=== PATIENT | female | born 1945 | race Caucasian/White ===

== ENCOUNTER 2020-06-18 10:47 | Outpatient (CLI) | payer MEDICARE, OTHER, SELFPAY ==
--- NOTE | 2020-06-18 10:51 | MM_ITS ---
WS: [id number] BILATERAL SCREENING DIGITAL MAMMOGRAM WITH CAD HISTORY: SCREENING COMPARISON: 05/29/2015 and 01/21/2013 Bilateral CC and MLO views submitted. Computer aided detection analyzed. Breast composition: There are scattered areas of fibroglandular density. No suspicious masses, microc alcifications or architectural distortion. Benign calcifications in each breast. Nodule in the medial inferior LEFT breast has decreased in size since the prior study. MM/[place] [id number] IMPRESSION: BI-RADS: 2-Benign FOLLOW UP: 1 Year Follow-up
== END 2020-06-18 10:48 | disposition home or self-care (01) ==
LOC: RADSHAW 10:49
PROVIDERS: Family Provider Family Medicine; PCP Family Medicine; Visit Provider Family Medicine
DX: Z12.31 Encounter for screening mammogram for malignant neoplasm of breast (principal)
CPT/HCPCS: 77067

== ENCOUNTER 2021-08-14 07:29 | Outpatient (CLI) | payer MEDICARE, OTHER, SELFPAY ==
[2021-08-14 08:03] VITALS: BMI 25.7
--- NOTE | 2021-08-14 08:03 | ECG_ITS ---
Test Date: 2021-08-14 Pat Name: Viki Greene Department: Room: Gender: Female Desktop Technician: Mariana Morgan : 1945 Requested By: Marcos Sun Order Number: [id number] Siddhartha MD: Ashly Barber M.D. Interpretive Statements NAME OF STUDY: LEXISCAN SESTAMIBI STRESS TEST INDICATION: Shortness of Breath, PROCEDURE: At the baseline, the EKG revealed sinus rhythm with a normal ST Ts. The baseline blood pressure was 112/70 mm Hg with a heart rate of 68 beats/min. Lexiscan was infused over a period of 20 seconds. A total of 0.4 milligrams of Lexiscan was infused. The stress phase was continued for a total of 5 minutes. Heart rate at the end of the stress phase was 69 with a blood pressure 111/68. The EKG at the peak infusion revealed no significant changes. Sestamibi was injected 20 seconds after the Lexiscan infusion. Blood pressure at the end of the recovery phase was 116/65 with a heart rate of 88 per minute. CONCLUSION: 1. No significant EKG changes with the LexiScan infusion 2. No LexiScan induced chest pain or cardiac arrhythmia 3. Normal blood pressure and heart rate response 4. Sestamibi/sestamibi perfusion scan pending; see separate report. Electronically Signed On 08-16-2021 14:44:21 CDT by Ashly Barber M.D. [email or web address]
--- NOTE | 2021-08-14 08:04 | NMCV_ITS ---
NM riley perf SPECT r/s* [id number] Viki Greene Age: 75 Gender: F : 1945 Exam Date: 08/14/2021 08:04 Ordering Phys: Marcos Sun Technologist: JIMBO Emmanuel Exam Location: [facility] Indications: ATHEROSCLEROTIC HEART DISEASE OF [place] CORONARY ARTERY STRESS TEST Please see separate stress test report in [facility] for full findings IMAGE PROTOCOL Rest/Stress 1 Lexiscan Day Radiopharmaceutical Dose (mCi) Administration Site Administered by Rest: Tc-99m 10.9 IV JIMBO Schneider Sestamibi Stress:Tc-99m 32.4 IV JIMBO Schneider Sestamibi Rest: 14-Aug-2021 60 Discovery 630 Stress: 14-Aug-2021 30 Discovery 630 0.4mg Lexiscan. Supine position only as patient was unable to lay prone. SPECT RESULTS Technical Quality: Excellent Raw Data Analysis: Normal Image Corrections: No attenuation or motion correction applied Summed Stress Score: 0 Summed Rest Score: 1 Summed Difference Score: 0 PERFUSION FINDINGS Fairly uniform myocardial tracer uptake. No significant perfusion abnormalities FUNCTIONAL RESULTS (calculated via Gated SPECT) Stress Image LV EF (%): 75 Stress EDV (mL):72 TID: 1.2 Stress ESV (mL):18 FUNCTIONAL FINDINGS: Segmental wall motion analysis revealing no gross wall motion abnormalities IMPRESSIONS 1. Unremarkable myocardial perfusion imaging. 2. Normal LV ejection fraction 75%. 3. LV wall motion analysis revealing no gross wall motion abnormalities. 4. Normal LV volume Low probability for coronary ischemia, based on the above findings Dr Ashly Barber MD [facility] (Electronically Signed) Final Date: 14 August 2021 13:03 S
[2021-08-14] MEDS: regadenoson 0.4 Mg/5 ml Syringe IVP (09:10)
[2021-08-14 09:26] VITALS: BP 116/66; PULSE 68
== END 2021-08-14 07:30 | disposition home or self-care (01) ==
LOC: CDL 07:31
PROVIDERS: PCP Family Medicine; Visit Provider Family Medicine
DX: R07.9 Chest pain, unspecified (principal); I25.10 Atherosclerotic heart disease of native coronary artery without angina pectoris
CPT/HCPCS: 78452; 93017; A9500; J2785

== ENCOUNTER 2022-09-26 19:36 | Emergency (ER) | payer MEDICARE, OTHER, SELFPAY ==
[2022-09-26 19:37] VITALS: BP 124/82; PULSE 69; RESP 18; TEMP 36.8; O2SAT 90; BMI 27.4
--- NOTE | 2022-09-26 20:00 | CTR_ITS ---
PROCEDURE INFORMATION: Exam: CT Abdomen And Pelvis With Contrast Exam date and time: 09/26/2022 8:58 PM Age: 77 years old Clinical indication: Nausea and vomiting; Abdominal pain; Generalized; Prior surgery; Surgery date: 6+ months; Surgery type: Appy. Hysterectomy; Patient HX: C/O diffuse abd pain with n/v. History of sbo. ; Additional info: Abd pain vomiting TECHNIQUE: Imaging protocol: Computed tomography of the abdomen and pelvis with contrast. Radiation optimization: All CT scans at this facility use at least one of these dose optimization techniques: automated exposure control; mA and/or kV adjustment per patient size (includes targeted exams where dose is matched to clinical indication); or iterative reconstruction. Contrast material: OMNI 350; Contrast volume: 100 ml; Contrast route: INTRAVENOUS (IV); REPORTING DATA: Count of CT and Cardiac NM exams in prior 12 months: This patient has received 0 known CTs and 0 known cardiac nuclear medicine studies in the 12 months prior to the current study. COMPARISON: CT abdomen pelvis wo/w [id number] 05/07/2017 10:35 AM RADIATION DOSE METRICS: Total DLP (mGy-cm): 576.85 FINDINGS: Liver: Normal. No mass. Gallbladder and bile ducts: Normal. No calcified stones. No ductal dilation. Pancreas: Normal. No ductal dilation. Spleen: Normal. No splenomegaly. Adrenal glands: Normal. No mass. Kidneys and ureters: Small simple bilateral renal cortical cysts. Negative for perinephric inflammation. Negative for hydroureteronephrosis. Negative for nephrolithiasis. Stomach and bowel: Diverticulosis coli. Colon is decompressed. Mild to moderate colonic fecal volume. Proximal to mid small bowel loops are relatively decompressed with gradual caliber increase of mid to distal small bowel measuring up to 3 cm greatest transverse diameter. Terminal small bowel loops are decompressed. Negative for pneumatosis intestinalis. Appendix: Appendectomy. Intraperitoneal space: Small volume scattered mesenteric free fluid without loculation. Negative for pneumoperitoneum. Vasculature: Unremarkable. No abdominal aortic aneurysm. Lymph nodes: Unremarkable. No enlarged lymph nodes. Urinary bladder: Unremarkable as visualized. Reproductive: Hysterectomy. Bones/joints: The lumbar spine demonstrates marked discogenic and apophyseal joint degenerative changes at multiple levels. Soft tissues: Unremarkable. CT/CT abdomen pelvis w con* [id number] IMPRESSION: Mildly dilated mid distal small bowel loops which may represent ileus or early obstruction features. COMMENTS: Consistent with the [employer]'s Incidental Findings Committee white paper (J Am Herve Radiol 2018): Any incidental renal lesion less than 1 cm or classified as too small to characterize, or any incidental cystic renal lesion characterized as simple-appearing, is likely benign. No follow-up imaging is recommended for these lesions per consensus recommendations based on imaging criteria.
[2022-09-26 20:10] VITALS: BP 194/89; PULSE 66; RESP 16; O2SAT 92
[2022-09-26] MEDS: ondansetron 2 mg/ML SDV 2 mL 4 MG IVP (20:36)
[2022-09-26 20:37] LABS: Basophils % 0.1 %; Eosinophils % 0.1 %; Hematocrit 45.5 % (37.0-47.0); Lymphocytes # 0.7 10^3/uL (0.8-4.8); Lymphocytes % 4.7 %; Mean Corpuscular Hemoglobin 31.1 pg (28.0-34.0); Mean Corpuscular Volume 94.2 fl (81-99); Mean Platelet Volume 10.6 fL (7.4-10.4); Monocytes # 0.5 10^3/uL (0.2-0.9); Monocytes % 3.5 %; Neutrophils # 12.79 10^3/uL (1.8-7.7); Neutrophils % 91.3 %; Nucleated Red Blood Cells % 0 %; Platelet Count 179 10^3/cmm (130-400); Red Blood Count 4.83 10^6/uL (4.1-5.3); Red Cell Distribution Width 13.2 % (12.1-15.1)
[2022-09-26] MEDS: lidocaine 2% viscous 15 ML, aluminum-mag hydrox-simethicon 30 ML, sucralfate oral liq 1 GM PO (20:38)
[2022-09-26 20:42] VITALS: BP 134/62; PULSE 69; RESP 16; O2SAT 88
[2022-09-26 20:49] LABS: Alanine Aminotransferase 19 U/L (0-33); Albumin Level 4.2 g/dL (3.5-5.2); Alkaline Phosphatase 68 U/L (35-105); Anion Gap 15.4 (5-19); Aspartate Amino Transferase 29 U/L (0-32); Blood Urea Nitrogen 20 mg/dL (8-23); Calcium 9.4 mg/dL (8.5-10.5); Carbon Dioxide 28 mmol/L (22-29); Chloride 101 mmol/L (98-107); Creatinine Clr Calc Pharmacy 52.4032; Globulin 2.6 g/dL (1.3-4.6); Glucose 116 mg/dL (65-115); Lipase 18 U/L (13-60); Osmolality Calculated 294 mOsm/kg (285-295); Potassium 4.4 mmol/L (3.5-5.1); Sodium 140 mmol/L (136-145); Total Bilirubin 0.6 mg/dL (0.15-1.2); Total Protein 6.8 g/dL (6.6-8.7)
[2022-09-26 20:51] LABS: Add Urine Culture? No; Add Urine Microscopic? YES; Amorphous Sediment Urine 1+ /hpf; Bacteria Urine TRACE /hpf; Bilirubin Urine Neg (Negative); Blood Urine Neg (Negative); Glucose Urine UA Norm (Normal); Ketones Urine 1+ (Negative); Leukocyte Esterase Urine Trace (Negative); Nitrate Urine Negative (Negative); Protein Urine Neg (Negative); RBC Urine 0-4 /hpf (0-2); Specific Gravity, Urine 1.005 (1.005-1.030); Squamous Epithelial Cell Urine 0-4 /hpf (0-5); Sulfosalicylic Acid Urine Negative (Negative); Urine Appearance Clear (CLEAR); Urine Color Yellow (Yellow); Urobilinogen Urine Norm (Negative); WBC Urine 0-4 /hpf (0-5); pH Urine 8 (5-7)
[2022-09-26] MEDS: iohexol 350 mg/mL 500 mL Btl (per mL) IV (21:01)
--- NOTE | 2022-09-26 21:05 | ED_ITS ---
HPI - Abdominal Pain General: Chief Complaint: Abdominal Pain Stated Complaint: ABD PAIN Time Seen by Provider: 09/26/22 19:44 Source: patient History of Present Illness: 77-year-old female with 2 belly surgeries in the remote past. These are a hysterectomy, and a adhesiolysis for small bowel obstruction. She presents with abdominal pain, in the epigastric region radiating into her back since around 3 AM. She has vomited multiple times. She has not had a fever. No diarrhea. No blood in the vomitus or stool. Pain is improved after administration of fentanyl and promethazine in route by EMS. MD elicited complaint: abdominal pain Pertinent past history: other Onset (ago): hour(s) Pain Consistency: constant Location: Epigastric Quality: stabbing Radiation: back Migration to: no migration Exacerbating factors: movement Relieving factors: nothing Associated Symptoms: Reports chills, nausea and vomiting; Denies constipation, diarrhea, dysuria, fever(s), hematochezia, hematuria and melena Review of Systems Const: Reports: chills; Denies: fever(s) ENMT: Denies: throat pain Card: Denies: chest pain or palpitations Resp: Denies: dyspnea, productive cough or non-productive cough GI: Reports: nausea and vomiting; Denies: diarrhea, constipation, hematochezia or melena : Denies: dysuria or hematuria Physical Exam Const: COMMON NORMALS: no acute distress GENERAL APPEARANCE: cooperative; not ill appearing and not frail appearing HENMT: COMMON NORMALS: normocephalic, atraumatic and Normal external nose present HEAD & SCALP: normocephalic and atraumatic FACE & SINUS: normal facial exam and face symmetric NOSE: Normal external nose present Eye: COMMON NORMALS: Equal, round and reactive pupils present and EOMs intact bilaterally PUPIL: Yes Equal, round and reactive pupils present Neck/C-Spine: GENERAL: Yes trachea midline Chest: CHEST: Yes Symmetrical chest wall rise Resp: COMMON NORMALS: normal respiratory effort, No retractions, No use of accessory muscles and clear to auscultation bilaterally AUSCULTATION: clear to auscultation bilaterally Cardio: COMMON NORMALS: regular rate and regular rhythm RATE: regular rate RHYTHM: regular rhythm GI: COMMON NORMALS: Normal to inspection, nondistended, normoactive bowel sounds present PALPATION: Yes Tenderness to palpation present (GI) (Epigastric) Extremity: COMMON NORMALS: no pedal edema Neuro: LEONA COMA SCALE: document GCS findings [place] coma scale eye opening: Spontaneous [place] coma scale verbal response: Orientated Leona coma scale motor response: Obey commands [place] coma scale total score: 15 SENSORY EXAM: Yes extremities (intact) Psych: COMMON NORMALS: speech normal SPEECH: Yes normal speech Skin: COMMON NORMALS: no rashes or lesions noted GENERAL SKIN EXAM: no rashes or lesions noted Course Vital Signs: Vital signs: Vital Signs Temperature 98.2 F 09/26/22 19:37 Pulse Rate 64 09/27/22 01:20 Respiratory Rate 16 09/26/22 22:41 Blood Pressure 119/64 09/27/22 01:20 Pulse Oximetry 93 09/27/22 01:20 Oxygen Delivery Me thod Room Air 09/26/22 22:41 Oxygen Flow Rate 2 09/26/22 20:42 MDM - Abdominal Pain Medical Decision Making Patient's pain is much improved after medication administration. She has not thrown up here. Vitals are stable. White blood cell count was 14. CBC and BMP are otherwise not remarkable. Liver enzymes are not remarkable. Her urinalysis is not remarkable. Lipase is 18. CT scan shows dilated loops of small bowel up to 3 cm without a transition point. Likely represents an ileus versus less likely early obstruction. As there is no transition point, patient given the choice of NG tube and admission versus home on liquid diet with pain control and laxative. She chose the latter. She knows to return for continued vomiting, worsening pain, any fever, other concerning symptoms. Lab Data 09/26/22 20:25 09/26/22 20:25 Labs/Radiology: Radiology Impressions Abdomen/Pelvis CT 09/26/22 20:00 IMPRESSION: Mildly dilated mid distal small bowel loops which may represent ileus or early obstruction features. COMMENTS: Consistent with the [employer]'s Incidental Findings Committee white paper (J Am Herve Radiol 2018): Any incidental renal lesion less than 1 cm or classified as too small to characterize, or any incidental cystic renal lesion characterized as simple-appearing, is likely benign. No follow-up imaging is recommended for these lesions per consensus recommendations based on imaging criteria. Laboratory Results WBC 14.0 10^3/uL (4.0-10.0) H 09/26/22 20:25 RBC 4.83 10^6/uL (4.1-5.3) 09/26/22 20:25 Hgb 15.0 g/dL (11.5-15.3) 09/26/22 20:25 Hct 45.5 % (37.0-47.0) 09/26/22 20:25 MCV 94.2 fl (81-99) 09/26/22 20: MCH 31.1 pg (28.0-34.0) 09/26/22 20: MCHC 33.0 g/dL (30.0-36.0) 09/26/22 20: RDW 13.2 % (12.1-15.1) 09/26/22 20: Plt Count 179 10^3/cmm (130-400) 09/26/22 20: MPV 10.6 fL (7.4-10.4) H 09/26/22 20:25 Neut % (Auto) 91.3 % 09/26/22 20: Lymph % (Auto) 4.7 % 09/26/22 20:25 [place] % (Auto) 3.5 % 09/26/22 20:25 Eos % (Auto) 0.1 % 09/26/22 20: Baso % (Auto) 0.1 % 09/26/22 20: Neut # (Auto) 12.79 10^3/uL (1.8-7.7) H 09/26/22 20:25 Lymph # (Auto) 0.7 10^3/uL (0.8-4.8) L 09/26/22 20:25 [place] # (Auto) 0.5 10^3/uL (0.2-0.9) 09/26/22 20:25 Eos # (Auto) 0.0 10^3/uL (0.0-0.8) 09/26/22 20:25 Baso # (Auto) 0.0 10^3/uL (0.0-0.1) 09/26/22 20:25 Nucleated RBC % (auto) 0 % 09/26/22 20: Nucleated RBCs # 0.0 /100WBC 09/26/22 20:25 Sodium 140 mmol/L (136-145) 09/26/22 20:25 Potassium 4.4 mmol/L (3.5-5.1) 09/26/22 20:25 Chloride 101 mmol/L (98-107) 09/26/22 20:25 Carbon Dioxide 28 mmol/L (22-29) 09/26/22 20:25 Anion Gap 15.4 (5-19) 09/26/22 20:25 BUN 20 mg/dL (8-23) 09/26/22 20:25 Creatinine 0.7 mg/dL (0.5-0.9) 09/26/22 20:25 GFR Calculation Not Reportable 09/26/22 20:25 Glucose 116 mg/dL (65-115) H 09/26/22 20:25 Calculated Osmolality 294 mOsm/kg (285-295) 09/26/22 20:25 Calcium 9.4 mg/dL (8.5-10.5) 09/26/22 20:25 Total Bilirubin 0.6 mg/dL (0.15-1.2) 09/26/22 20:25 AST 29 U/L (0-32) 09/26/22 20:25 ALT 19 U/L (0-33) 09/26/22 20:25 Alkaline Phosphatase 68 U/L (35-105) 09/26/22 20:25 Total Protein 6.8 g/dL (6.6-8.7) 09/26/22 20:25 Albumin 4.2 g/dL (3.5-5.2) 09/26/22 20:25 Globulin 2.6 g/dL (1.3-4.6) 09/26/22 20:25 Lipase 18 U/L (13-60) 09/26/22 20:25 Urine Color Yellow (Yellow) 09/26/22 20:20 Urine Appearance Clear (CLEAR) 09/26/22 20:20 Urine pH 8 (5-7) H 09/26/22 20:20 Ur Specific [place] 1.005 (1.005-1.030) 09/26/22 20:20 Urine Protein Neg (Negative) 09/26/22 20:20 Urine Glucose (UA) Norm (Normal) 09/26/22 20:20 Urine Ketones 1+ (Negative) H 09/26/22 20:20 Urine Blood Neg (Negative) 09/26/22 20:20 Urine Nitrate Negative (Negative) 09/26/22 20:20 Urine Bilirubin Neg (Negative) 09/26/22 20:20 Prot Sulfosalicylic Acd Negative (Negative) 09/26/22 20:20 Urine Urobilinogen Norm mg/dL (Negative) 09/26/22 20:20 Ur Leukocyte Esterase Trace (Negative) H 09/26/22 20:20 Urine RBC 0-4 /hpf (0-2) H 09/26/22 20:20 Urine WBC 0-4 /hpf (0-5) H 09/26/22 20:20 Ur Squamous Epith Cells 0-4 /hpf (0-5) H 09/26/22 20:20 Amorphous Sediment 1+ /hpf 09/26/22 20:20 Urine Bacteria Trace /hpf (NONE) 09/26/22 20:20 Discharge Plan Discharge Patient Disposition: Home Clinical Impression: Ileus Condition: Stable Prescriptions: New lactulose 10 gram/15 mL (15 mL) solution 10 g PO TID Qty: 473 0RF hydrocodone-acetaminophen 5-325 mg tablet 1 tab PO Q8H PRN (Reason: pain) Qty: 7 0RF ondansetron 4 mg film 4 mg PO DAILY PRN (Reason: nausea and vomiting) Qty: 10 0RF Discharge Orders: Discharge ED (Routine); Ordered 09/26/22 Ordered By: Jay Day Referrals: Marcos Sun [Primary Care Provider] - 1-3 days Discharge Diet: Clear Liquid Patient Instructions: Ileus (ED) Activity Restrictions/Additional Instructions: Follow a clear liquid diet for the next 48 hours. Take medication scheduled until stool is soft and free-flowing. Use pain medication sparingly. Return for continued or worsening pain, vomiting, fever, any other concerning symptoms Coding Level of Care Code ED Lead Electrical Engineer for Natasha Ortiz
[2022-09-26 22:16] VITALS: BP 122/65; PULSE 66; RESP 16; O2SAT 94
[2022-09-26 22:41] VITALS: BP 123/58; PULSE 63; RESP 16; O2SAT 92
--- NOTE | 2022-09-27 00:19 | PC.NURSE ---
Patient sent home with 30mL Milk of Mag, 20mL of Lactulose, and 30mL of mineral oil per MD orders.
[2022-09-27 01:20] VITALS: BP 119/64; PULSE 64; O2SAT 93
== END 2022-09-27 00:18 | disposition home or self-care (01) ==
PROVIDERS: Physician Assistant; Emergency Provider Emergency Medicine; PCP Family Medicine
DX: K56.7 Ileus, unspecified (principal)
CPT/HCPCS: 74177; 80053; 81001; 83690; 85025; 96374; 99285; J2405; Q9967

== ENCOUNTER 2024-03-14 18:52 | Emergency (ER) | payer MEDICARE, OTHER, SELFPAY ==
[2024-03-14 19:12] VITALS: BP 192/51; PULSE 63; RESP 22; TEMP 36.3; O2SAT 97
--- NOTE | 2024-03-14 19:21 | XRR_ITS ---
PROCEDURE INFORMATION: Exam: XR Abdomen Exam date and time: 03/14/2024 7:24 PM Age: 78 years old Clinical indication: Abdominal pain; Acute; Prior surgery; Surgery date: 6+ months; Surgery type: Hyst appy TECHNIQUE: Imaging protocol: Radiologic exam of the abdomen. Views: 2 Views. Upright and supine views. COMPARISON: CT abdomen pelvis w con* [id number] 09/26/2022 8:58 PM FINDINGS: Gastrointestinal tract: Normal. No bowel dilation. Normal stool amount. Intraperitoneal space: Normal. No free air. Bones/joints: Unremarkable for age. XR/XR acute abdomen series [id number] IMPRESSION: No acute findings.
[2024-03-14] MEDS: ondansetron 2 mg/ML SDV 2 mL 8 MG IVP (19:41)
[2024-03-14] MEDS: famotidine 20 mg/2 mL INJ 40 MG IVP (19:46)
[2024-03-14 19:49] VITALS: RESP 16; O2SAT 93
[2024-03-14] MEDS: morphine 4 mg/mL SDV 1 mL IVP (19:49)
--- NOTE | 2024-03-14 19:49 | ED_ITS ---
HPI - Abdominal Pain 2 General: Chief Complaint: Abdominal Pain Stated Complaint: vomit blood abd pain Time Seen by Provider: 03/14/24 19:19 History of Present Illness: 78-year-old woman who presents emergency room with epigastric abdominal pain nausea and vomiting. She had some bright flecks of blood in her vomit as well. She has had epigastric pain. Started several hours ago. She says she has had an ileus in the past. No known fevers. No altered mental status. No chest pain. No shortness of breath. Related Data Previous Rx's Medication Instructions Recorded hydrocodone 5 mg-acetaminophen 325 1 tab PO Q8H PRN pain #7 tabs 09/26/22 mg tablet lactulose 10 gram/15 mL (15 mL) 10 g (15 mL) PO TID #473 mL 09/26/22 oral solution ondansetron 4 mg oral soluble film 4 mg PO DAILY PRN nausea and 09/26/22 vomiting #10 ea ondansetron 8 mg disintegrating 8 mg PO Q6H #14 tabs 03/14/24 tablet Allergies Allergy/AdvReac Type Severity Reaction Status Date / Time codeine Allergy ADR-Nausea Verified 03/14/24 19:17 meperidine [From Demerol] Allergy ALGY-Anaphy Verified 03/14/24 19:17 laxis Review of Systems 2 Narrative: Constitutional symptoms: Negative except as documented in HPI. Skin symptoms: Negative except as documented in HPI. Eye symptoms: Negative except as documented in HPI. ENMT symptoms: Negative except as documented in HPI. Respiratory symptoms: Negative except as documented in HPI. Cardiovascular symptoms: Negative except as documented in HPI. Gastrointestinal symptoms: Negative except as documented in HPI. Genitourinary symptoms: Negative except as documented in HPI. Musculoskeletal symptoms: Negative except as documented in HPI. Neurologic symptoms: Negative except as documented in HPI. Psychiatric symptoms: Negative except as documented in HPI. Endocrine symptoms: Negative except as documented in HPI. Physical Exam 2 Narrative: EXAM NARRATIVE: General: Alert, no acute distress. Skin: Warm, dry. Head: Normocephalic, atraumatic. Neck: Supple, trachea midline. Eye: Extraocular movements are intact. Ears, nose, mouth and throat: mucosa moist. Cardiovascular: Regular, Normal peripheral perfusion. Respiratory: Lungs are clear to auscultation, respirations are non-labored, breath sounds are equal, Symmetrical chest wall expansion. Gastrointestinal: Soft, moderate epigastric pain, Non distended Musculoskeletal: Normal ROM, no deformity. Neurological: Alert and oriented, No focal neurological deficit observed. Psychiatric: Cooperative, appropriate mood & affect. Course 2 Vital Signs: Vital signs: Vital Signs Temperature 97.4 F L 03/14/24 19:12 Pulse Rate 59 L 03/14/24 20:24 Respiratory Rate 16 03/14/24 20:24 Blood Pressure 131/66 03/14/24 20:24 Pulse Oximetry 93 03/14/24 20:24 Oxygen Delivery Me thod Room Air 03/14/24 20:24 MDM - Abdominal Pain Medical Decision Making Medical decision making: Differential diagnosis for this patient with nausea and vomiting including but not limited to and based on the above HPI, review of systems and physical exam: Urinary tract infection. Appendicitis. Cholecystis. colitis. small bowel obstruction. crohn's flare. pancreatitis. gastritis. peptic ulcer. cyclic vomiting. Viral illness. Influenza. COVID. - Workup - labwork and imaging ordered to evaluate, rule in and rule out above pathologies. Lab Review: Laboratory results were reviewed and interpreted by myself the emergency room physician. Mild leukocytosis. No anemia. No elevation in her BUN and creatinine that might indicate significant upper GI bleeding. Acute abdominal series: chest x-ray: No acute process. No obvious infiltrates. No pneumothorax. No cardiomegaly. This was reviewed and interpreted by myself the emergency room physician Abdomen x-ray: Nonspecific bowel gas pattern. No evidence of free air or obstruction. This was reviewed and interpreted by myself the emergency room physician. CT of the abdomen pelvis shows findings consistent with enterocolitis. This was reviewed and interpreted by myself the emergency room physician. I also reviewed the radiology report. I reviewed the patient's medical record. Reexamination: Patient says she feels much better. No further pain. She is not having more vomiting. No altered mental status. No increased work of breathing. Assessment and plan: Enterocolitis Vomiting ?IV Pepcid, IV Zofran and some IV morphine. - Discharged home - Discussed findings and plan with patient. Answered any questions. - All laboratory values were reviewed and interpreted personally by myself, the ER physician - All imaging was reviewed and interpreted personally by myself, the ER physician. - Evaluation and treatment of this problem were appropriate in the emergency setting Lab Data 03/14/24 19:35 03/14/24 20:07 Labs/Radiology: Radiology Impressions Chest/Abdomen X-ray 03/14/24 19:21 IMPRESSION: No acute findings. Abdomen/Pelvis CT 03/14/24 20:32 IMPRESSION: Findings consistent with acute enterocolitis Laboratory Results WBC 14.89 10^3/uL (3.29-11.43) H 03/14/24 19:35 RBC 4.83 10^6/uL (3.85-5.65) 03/14/24 19:35 Hgb 14.50 g/dL (11.27-16.99) 03/14/24 19:35 Hct 45.1 % (36-47) 03/14/24 19:35 MCV 93.4 fl (85-98) 03/14/24 19:35 MCH 30.0 pg (27-33) 03/14/24 19:35 MCHC 32.2 g/dL (30-55) 03/14/24 19:35 RDW 13.2 % (12.1-15.1) 03/14/24 19:35 Plt Count 184 10^3/cmm (157-399) 03/14/24 19:35 MPV 10.2 fL (7.4-10.4) 03/14/24 19:35 Neut % (Auto) 92.0 % 03/14/24 19:35 Lymph % (Auto) 3.3 % 03/14/24 19:35 [place] % (Auto) 4.2 % 03/14/24 19:35 Eos % (Auto) 0.1 % 03/14/24 19:35 Baso % (Auto) 0.1 % 03/14/24 19:35 Neut # (Auto) 13.70 10^3/uL (1.8-7.7) H 03/14/24 19:35 Lymph # (Auto) 0.5 10^3/uL (0.8-4.8) L 03/14/24 19:35 [place] # (Auto) 0.6 10^3/uL (0.2-0.9) 03/14/24 19:35 Eos # (Auto) 0.0 10^3/uL (0.0-0.8) 03/14/24 19:35 Baso # (Auto) 0.0 10^3/uL (0.0-0.1) 03/14/24 19:35 Nucleated RBC % (auto) 0 % 03/14/24 19:35 Nucleated RBCs # 0.0 /100WBC 03/14/24 19:35 Sodium 141 mmol/L (136-145) 03/14/24 20:07 Potassium 3.9 mmol/L (3.5-5.1) 03/14/24 20:07 Chloride 104 mmol/L (98-107) 03/14/24 20:07 Carbon Dioxide 28 mmol/L (22-29) 03/14/24 20:07 Anion Gap 12.9 (5-19) 03/14/24 20:07 BUN 16 mg/dL (8-23) 03/14/24 20:07 Creatinine 0.6 mg/dL (0.5-0.9) 03/14/24 20:07 GFR Calculation Not Reportable 03/14/24 20:07 Glucose 114 mg/dL (65-115) 03/14/24 20:07 Calculated Osmolality 294 mOsm/kg (285-295) 03/14/24 20:07 Lactic Acid 1.3 mmol/L (0.5-2.2) 03/14/24 20:07 Calcium 8.8 mg/dL (8.5-10.5) 03/14/24 20:07 Total Bilirubin 0.6 mg/dL (0.15-1.2) 03/14/24 20:07 AST 19 U/L (0-32) 03/14/24 20:07 ALT 12 U/L (0-33) 03/14/24 20:07 Alkaline Phosphatase 82 U/L (35-105) 03/14/24 20:07 Total Protein 6.4 g/dL (6.6-8.7) L 03/14/24 20:07 Albumin 4.1 g/dL (3.5-5.2) 03/14/24 20:07 Globulin 2.3 g/dL (1.3-4.6) 03/14/24 20:07 Lipase 14 U/L (13-60) 03/14/24 20:07 All radiology interpretation(s) finalized by discharge Discharge Plan Discharge Patient Disposition: Home Clinical Impression: Enterocolitis Condition: Stable Prescriptions: New ondansetron 8 mg tablet,disintegrating 8 mg PO Q6H Qty: 14 0RF Rx Instructions: Take 1/2-1 tab every 6 hours as needed for nausea and vomiting No Action lactulose 10 gram/15 mL (15 mL) solution 10 g PO TID Qty: 473 0RF hydrocodone-acetaminophen 5-325 mg tablet 1 tab PO Q8H PRN (Reason: pain) Qty: 7 0RF ondansetron 4 mg film 4 mg PO DAILY PRN (Reason: nausea and vomiting) Qty: 10 0RF Discharge Orders: Discharge ED (Routine); Ordered 03/14/24 Ordered By: Louann Álvarez Referrals: Marcos Sun [Primary Care Provider] - Discharge Diet: Advance as tolerated Discharge Activity: Resume usual activity Patient Instructions: Gastroenteritis (ED), Acute Nausea and Vomiting (ED), Colitis (ED) Activity Restrictions/Additional Instructions: Thank you for choosing [facility] for your healthcare needs today. Please realize this is an emergency room and that we are providing you with a medical screening exam and this may not be complete and all inclusive of all the testing and or work up that you may need to determine your ailment or severity of your illness. You have been screened and evaluated and felt safe for discharge. Health conditions do change or evolve sometimes and as such it is important that you follow up with your Primary Doctor to be re checked, 3-5 days is a general good time frame for follow up. You are always welcome to return to the ED for re assessment if your symptoms are worsening or you have new concerns Coding Level of Care Code ED [place] Upholsterer for Natasha Ortiz
[2024-03-14 19:50] VITALS: BP 146/71; PULSE 57; RESP 16; O2SAT 96
[2024-03-14 19:55] LABS: Basophils % 0.1 %; Eosinophils % 0.1 %; Hematocrit 45.1 % (36-47); Lymphocytes # 0.5 10^3/uL (0.8-4.8); Lymphocytes % 3.3 %; Mean Corpuscular HGB Conc 32.2 g/dL (30-55); Mean Corpuscular Volume 93.4 fl (85-98); Mean Platelet Volume 10.2 fL (7.4-10.4); Monocytes # 0.6 10^3/uL (0.2-0.9); Monocytes % 4.2 %; Nucleated Red Blood Cells % 0 %; Platelet Count 184 10^3/cmm (157-399); Red Blood Count 4.83 10^6/uL (3.85-5.65); Red Cell Distribution Width 13.2 % (12.1-15.1); White Blood Count 14.89 10^3/uL (3.29-11.43)
[2024-03-14 20:24] VITALS: BP 131/66; PULSE 59; RESP 16; O2SAT 93
[2024-03-14 20:30] LABS: Lactic Sepsis W/Reflex 1.3 mmol/L (0.5-2.2)
[2024-03-14 20:31] LABS: Alanine Aminotransferase 12 U/L (0-33); Albumin Level 4.1 g/dL (3.5-5.2); Alkaline Phosphatase 82 U/L (35-105); Anion Gap 12.9 (5-19); Aspartate Amino Transferase 19 U/L (0-32); Blood Urea Nitrogen 16 mg/dL (8-23); Calcium 8.8 mg/dL (8.5-10.5); Carbon Dioxide 28 mmol/L (22-29); Chloride 104 mmol/L (98-107); Globulin 2.3 g/dL (1.3-4.6); Glucose 114 mg/dL (65-115); Lipase 14 U/L (13-60); Osmolality Calculated 294 mOsm/kg (285-295); Potassium 3.9 mmol/L (3.5-5.1); Sodium 141 mmol/L (136-145); Total Bilirubin 0.6 mg/dL (0.15-1.2); Total Protein 6.4 g/dL (6.6-8.7)
--- NOTE | 2024-03-14 20:32 | CTR_ITS ---
PROCEDURE INFORMATION: Exam: CT Abdomen And Pelvis Without Contrast Exam date and time: 03/14/2024 8:41 PM Age: 78 years old Clinical indication: Abdominal pain TECHNIQUE: Imaging protocol: Computed tomography of the abdomen and pelvis without contrast. Radiation optimization: All CT scans at this facility use at least one of these dose optimization techniques: automated exposure control; mA and/or kV adjustment per patient size (includes targeted exams where dose is matched to clinical indication); or iterative reconstruction. COMPARISON: CT abdomen pelvis w con* [id number] 09/26/2022 8:58 PM RADIATION DOSE METRICS: Total DLP (mGy-cm): 581.95 FINDINGS: Lungs: Lung bases are clear. No pleural effusion. Liver: Normal. No mass. Gallbladder and biliary ducts: Normal. No calcified stones. No ductal dilation. Pancreas: Normal. No ductal dilation. Spleen: Normal. No splenomegaly. Adrenal glands: Normal. No mass. Kidneys and ureters: Normal. No hydronephrosis. Stomach and bowel: There are multiple loops of minimally distended, fluid-filled small bowel and liquid stool is noted throughout the colon. Multiple diverticula involve the sigmoid colon. There is no sign of diverticulitis. Appendix: No evidence of appendicitis. Intraperitoneal space: Unremarkable. No free air. No significant fluid collection. Vasculature: Unremarkable. No abdominal aortic aneurysm. Lymph nodes: Unremarkable. No enlarged lymph nodes. Urinary bladder: Unremarkable as visualized. Reproductive: Unremarkable as visualized. Bones/joints: Unremarkable. No acute fracture. Soft tissues: Unremarkable. CT/CT abdomen pelvis con [id number] IMPRESSION: Findings consistent with acute enterocolitis
[2024-03-14 21:25] VITALS: BP 130/56; PULSE 65; O2SAT 92
--- NOTE | 2024-03-14 21:40 | PC.NURSE ---
Pt sent home with [address] tabs [address] Álvarez's order.
[2024-03-14 21:44] VITALS: BP 130/56; PULSE 65; RESP 16; O2SAT 92
== END 2024-03-14 21:45 | disposition home or self-care (01) ==
PROVIDERS: Emergency Provider Emergency Medicine; PCP Family Medicine
DX: K52.9 Noninfective gastroenteritis and colitis, unspecified (principal)
CPT/HCPCS: 36415; 74022; 74176; 80053; 83605; 83690; 85025; 87040; 96374; 96375; 99285; J2270; J2405; J3490